=== PATIENT | female | born 1980 | race Caucasian/White ===

== ENCOUNTER 2020-10-28 10:07 | Outpatient (CLI) | payer SELFPAY ==
[~2020-10-28] VITALS: Ht 149.9 cm; Wt 68.2 kg
[2020-10-28 11:50] LABS: AMPHETAMINE SCREEN, URINE Positive (Negative); BARBITURATE SCREEN, URINE Negative (Negative); BENZODIAZEPINE SCREEN, URINE Negative (Negative); CANNABINOID SCREEN, URINE Positive (Negative); COCAINE SCREEN, URINE Negative (Negative); METHADONE SCREEN, URINE Negative (Negative); OPIATE SCREEN, URINE Negative (Negative)
[2020-10-28 11:52] VITALS: BP 122/72
== END 2020-10-28 13:52 | disposition home or self-care (01) ==
LOC: LDOP 10:07
PROVIDERS: ATTEND Obstetrics & Gynecology
DX: O09.33 Supervision of pregnancy with insufficient antenatal care, third trimester (principal); Z3A.30 30 weeks gestation of pregnancy
CPT/HCPCS: 36415; 59025; 76805; 80307; 86592; 86762; 86803; 86850; 86900; 87340; 87806; G0475

== ENCOUNTER 2020-10-30 13:48 | Outpatient (CLI) | payer MEDICAID ==
[~2020-10-30] VITALS: Ht 149.9 cm; Wt 71.3 kg
[2020-10-30 14:07] VITALS: BP 121/75
[2020-10-30 14:19] LABS: AMPHETAMINE SCREEN, URINE Negative (Negative); BARBITURATE SCREEN, URINE Negative (Negative); BENZODIAZEPINE SCREEN, URINE Negative (Negative); CANNABINOID SCREEN, URINE Positive (Negative); COCAINE SCREEN, URINE Negative (Negative); METHADONE SCREEN, URINE Negative (Negative); OPIATE SCREEN, URINE Negative (Negative)
[2020-10-30] MEDS ORDERED: ACETAMINOPHEN 500 MG TABLET PO ONE (15:00)
[2020-10-30] MEDS ORDERED: PREN1TAB10 PO (15:42)
[2020-10-30] MEDS ORDERED: ACET-1600 PO (15:44)
[2020-10-30] MEDS ORDERED: ALBU8.5H8 INH (15:46)
[2020-10-30] MEDS ORDERED: ALBUTEROL HFA 90 MCG/SPRAY INH PRN (16:00)
== END 2020-10-30 17:29 | disposition home or self-care (01) ==
LOC: LDOP 13:48
PROVIDERS: ATTEND Obstetrics & Gynecology
DX: O09.93 Supervision of high risk pregnancy, unspecified, third trimester (principal); O26.893 Other specified pregnancy related conditions, third trimester; M54.9 Dorsalgia, unspecified; Z3A.31 31 weeks gestation of pregnancy
CPT/HCPCS: 80307; 99211; G0463

== ENCOUNTER 2020-11-16 22:10 | Emergency (ER) | payer MEDICAID ==
[~2020-11-16 22:10] MED LIST: ACET-1600 PO; ALBU8.5H8 INH; PREN1TAB10 PO
--- NOTE | 2020-11-16 22:16 | NUR ---
34 WEEKS . PT TAKEN TO L&D. C/O PAIN/CRAMPS.
== END 2020-11-16 22:19 ==
LOC: ED 22:15
DX: R42 Dizziness and giddiness (principal); Z53.21 Procedure and treatment not carried out due to patient leaving prior to being seen by health care provider

== ENCOUNTER 2020-11-16 22:25 | Outpatient (CLI) | payer MEDICAID ==
[~2020-11-16] VITALS: Ht 149.9 cm; Wt 74.0 kg
[2020-11-16 23:00] VITALS: BP 109/62
[2020-11-16] MEDS ORDERED: BISACODYL 10 MG SUPP ONE (23:06)
[2020-11-16] MEDS ORDERED: BISACODYL 10 MG SUPP PR PRN (23:30)
== END 2020-11-16 23:36 | disposition home or self-care (01) ==
LOC: LDOP 22:25
PROVIDERS: ATTEND Obstetrics & Gynecology
DX: O09.93 Supervision of high risk pregnancy, unspecified, third trimester (principal); O26.893 Other specified pregnancy related conditions, third trimester; R14.0 Abdominal distension (gaseous); Z3A.34 34 weeks gestation of pregnancy
CPT/HCPCS: 59025

== ENCOUNTER 2020-11-21 14:50 | Outpatient (CLI) | payer MEDICAID ==
[2020-11-21 16:28] LABS: MICROSCOPIC INDICATED
[2020-11-21 16:46] LABS: AMPHETAMINE SCREEN, URINE Negative (Negative); BARBITURATE SCREEN, URINE Negative (Negative); BENZODIAZEPINE SCREEN, URINE Negative (Negative); CANNABINOID SCREEN, URINE Negative (Negative); COCAINE SCREEN, URINE Negative (Negative); METHADONE SCREEN, URINE Negative (Negative); OPIATE SCREEN, URINE Negative (Negative)
== END 2020-11-21 17:25 | disposition home or self-care (01) ==
LOC: LDOP 14:50
PROVIDERS: ATTEND Obstetrics & Gynecology
DX: O46.8X3 Other antepartum hemorrhage, third trimester (principal); Z3A.33 33 weeks gestation of pregnancy
CPT/HCPCS: 59025; 80307; 81001; 87086

== ENCOUNTER 2020-11-25 20:02 | Outpatient (CLI) | payer MEDICAID ==
[~2020-11-25] VITALS: Ht 149.9 cm; Wt 75.0 kg
[2020-11-25 20:33] LABS: MICROSCOPIC INDICATED
[2020-11-25 20:37] VITALS: BP 119/73
[2020-11-25 20:44] LABS: AMPHETAMINE SCREEN, URINE Negative (Negative); BARBITURATE SCREEN, URINE Negative (Negative); BENZODIAZEPINE SCREEN, URINE Negative (Negative); CANNABINOID SCREEN, URINE Negative (Negative); COCAINE SCREEN, URINE Negative (Negative); METHADONE SCREEN, URINE Negative (Negative); OPIATE SCREEN, URINE Negative (Negative)
== END 2020-11-25 21:20 | disposition home or self-care (01) ==
LOC: LDOP 20:02
PROVIDERS: ATTEND Obstetrics & Gynecology
DX: O09.93 Supervision of high risk pregnancy, unspecified, third trimester (principal); O62.9 Abnormality of forces of labor, unspecified; Z3A.34 34 weeks gestation of pregnancy
CPT/HCPCS: 59025; 80307; 81001; 87086

== ENCOUNTER 2020-12-21 16:25 | Inpatient (IN) | payer MEDICAID ==
[~2020-12-21] VITALS: Ht 149.9 cm; Wt 77.1 kg
[2020-12-21] MEDS ORDERED: PLEASE ENTER HEIGHT AND WEIGHT MC SCH (18:30)
[2020-12-21 18:33] VITALS: BP 122/74
[2020-12-21 18:53] LABS: MICROSCOPIC INDICATED
[2020-12-21 18:57] LABS: BASOPHILS % (AUTO) 1 % (0-1); EOSINOPHILS % (AUTO) 2 % (1-7); LYMPHOCYTES % (AUTO) 16 % (22-44); MEAN CORPUSCULAR HEMOGLOBIN 30.5 pg (27.0-34.8); MEAN CORPUSCULAR HGB CONC 33.9 g/dL (32.4-35.8); MEAN PLATELET VOLUME 9.4 fL (7.4-10.4); MONOCYTES % (AUTO) 8 % (2-9); NEUTROPHILS % (AUTO) 73 % (42-75); PLATELET COUNT 204 x10^3/uL (130-400); RED BLOOD COUNT 3.68 x10^6/uL (3.82-5.3); RED CELL DISTRIBUTION WIDTH 16.9 % (9.6-15.2)
[2020-12-21] MEDS: LACTATED RINGERS 1,000 ML IV SCH (19:00)
[2020-12-21 19:25] LABS: ALANINE AMINOTRANSFERASE 17 U/L (12-78); ALBUMIN 2.5 g/dL (3.4-5.0); ANION GAP 8 mmol/L (5-15); CALCIUM 8.7 mg/dL (8.5-10.1); CHLORIDE 110 mmol/L (98-107)
[2020-12-21 19:27] LABS: ALKALINE PHOSPHATASE 125 U/L (45-117); BILIRUBIN,TOTAL 0.2 mg/dL (0.2-1.0); TOTAL PROTEIN 6.8 g/dL (6.4-8.2)
[2020-12-21 19:47] LABS: AMPHETAMINE SCREEN, URINE Negative (Negative); BARBITURATE SCREEN, URINE Negative (Negative); BENZODIAZEPINE SCREEN, URINE Negative (Negative); CANNABINOID SCREEN, URINE Negative (Negative); COCAINE SCREEN, URINE Negative (Negative); METHADONE SCREEN, URINE Negative (Negative); OPIATE SCREEN, URINE Negative (Negative)
[2020-12-21 19:56] LABS: O2 FLOW ROOM AIR L/min
[2020-12-21] MEDS ORDERED: METOCLOPRAMIDE 5 MG/ML, 2ML IV ONE (20:30)
[2020-12-21] MEDS ORDERED: SODIUM CITRATE/CITRIC ACID 30 ML UDC PO ONE (20:30)
[2020-12-21] MEDS ORDERED: LIDOCAINE 1%, 20ML ONE (22:06)
[2020-12-21] MEDS ORDERED: NEWBORN KIT ONE (22:06)
[2020-12-21] MEDS ORDERED: MISOPROSTOL 200 MCG TABLET ONE (22:06)
[2020-12-21] MEDS ORDERED: OXYTOCIN 30U/ 0.9% NaCL 500ML 500 ML ONE (22:07)
[2020-12-22] MEDS: LACTATED RINGERS 1,000 ML IV SCH ×7 (05:30→19:30)
[2020-12-22] MEDS ORDERED: METOCLOPRAMIDE 5 MG/ML, 2ML ONE (05:49)
[2020-12-22] MEDS ORDERED: SODIUM CITRATE/CITRIC ACID 15 ML UDC ONE (05:49)
[2020-12-22] MEDS ORDERED: LIDOCAINE/PF 1.5% EPI 1:200K, 10 ML ONE (07:28)
[2020-12-22] MEDS ORDERED: FENTANYL PF 100 MCG/2ML ONE (07:53)
[2020-12-22] MEDS ORDERED: LIDOCAINE 1%, 20ML ONE (07:55)
[2020-12-22] MEDS ORDERED: LIDOCAINE-MPF 2%, 2ML ONE ×3 (08:20)
[2020-12-22] MEDS ORDERED: LIDOCAINE-MPF 2% ,5ML ONE (08:20)
[2020-12-22] MEDS ORDERED: ETOMIDATE 20 MG/10 ML ONE (08:20)
[2020-12-22] MEDS ORDERED: GLYCOPYRROLATE 0.2MG/1ML, 5ML ONE (08:20)
[2020-12-22] MEDS ORDERED: CEFAZOLIN 1,000 MG ONE ×2 (08:21)
[2020-12-22] MEDS ORDERED: OXYTOCIN 10 UNITS/ML, 1ML ONE ×2 (08:21)
[2020-12-22] MEDS ORDERED: ONDANSETRON 2MG/ML, 2ML ONE (08:21)
[2020-12-22] MEDS ORDERED: PHENYLEPHRINE 10 MG/ML ONE (08:21)
[2020-12-22] MEDS ORDERED: MISOPROSTOL 200 MCG TABLET ONE (08:44)
[2020-12-22] MEDS ORDERED: OXYcodone/APAP 5/325MG TABLET PO PRN ×2 (09:30)
[2020-12-22] MEDS ORDERED: SIMETHICONE 80 MG CHEW TAB PO PRN (09:30)
[2020-12-22] MEDS ORDERED: ONDANSETRON 2MG/ML, 2ML IV PRN (09:30)
[2020-12-22] MEDS ORDERED: ACETAMINOPHEN 325 MG TABLET PO PRN (09:30)
[2020-12-22] MEDS ORDERED: DIPH,PERTUSS(ACELL),TET VAC/PF NC IM-VACC PRN (09:30)
[2020-12-22] MEDS ORDERED: MISOPROSTOL 200 MCG TABLET PR PRN (09:30)
[2020-12-22] MEDS: OXYTOCIN 30U/ 0.9% NaCL 500ML 500 ML IV SCH ×2 (09:33→19:30)
[2020-12-22 09:51] VITALS: BP 115/73
[2020-12-22] MEDS: NICOTINE 7 MG/24 HR PATCH.TD24 TD SCH (10:29)
[2020-12-22] MEDS: KETOROLAC 30 MG/1 ML IV SCH ×3 (10:31→22:18)
[2020-12-22] MEDS: SERTRALINE 50MG TABLET PO SCH (10:34)
[2020-12-22 10:50] VITALS: BP 126/67
[2020-12-22 15:52] VITALS: BP 137/83
[2020-12-22 18:34] VITALS: BP 130/70
[2020-12-22 23:46] VITALS: BP 130/78
[2020-12-23] MEDS: LACTATED RINGERS 1,000 ML IV SCH ×8 (01:23→16:09)
[2020-12-23] MEDS: KETOROLAC 30 MG/1 ML IV SCH ×4 (03:30→22:02)
[2020-12-23 03:32] VITALS: BP 122/80
[2020-12-23] MEDS: OXYTOCIN 30U/ 0.9% NaCL 500ML 500 ML IV SCH ×2 (05:00→15:28)
[2020-12-23 06:08] VITALS: BP 128/78
[2020-12-23 06:09] LABS: BASOPHILS % (AUTO) 0 % (0-1); EOSINOPHILS % (AUTO) 2 % (1-7); LYMPHOCYTES % (AUTO) 13 % (22-44); MEAN CORPUSCULAR HEMOGLOBIN 30.6 pg (27.0-34.8); MEAN CORPUSCULAR HGB CONC 33.7 g/dL (32.4-35.8); MEAN PLATELET VOLUME 9.9 fL (7.4-10.4); MONOCYTES % (AUTO) 7 % (2-9); NEUTROPHILS % (AUTO) 77 % (42-75); PLATELET COUNT 163 x10^3/uL (130-400); RED BLOOD COUNT 2.93 x10^6/uL (3.82-5.3); RED CELL DISTRIBUTION WIDTH 17.2 % (9.6-15.2)
[2020-12-23] MEDS: SERTRALINE 50MG TABLET PO SCH ×2 (08:46→08:57)
[2020-12-23] MEDS: PRENATAL VIT/IRON/FA 1 EACH TABLET PO SCH (08:46)
[2020-12-23] MEDS: NICOTINE 7 MG/24 HR PATCH.TD24 TD SCH (10:19)
[2020-12-23 12:15] VITALS: BP 110/66
[2020-12-23 15:41] VITALS: BP 129/85
[2020-12-23 18:12] VITALS: BP 126/79
[2020-12-23 19:30] VITALS: BP 134/84
[2020-12-23] MEDS: DOCUSATE 100 MG CAPSULE PO PRN (22:02)
[2020-12-24 00:40] VITALS: BP 113/74
[2020-12-24] MEDS: LACTATED RINGERS 1,000 ML IV SCH ×4 (01:30→08:48)
[2020-12-24] MEDS: OXYTOCIN 30U/ 0.9% NaCL 500ML 500 ML IV SCH (01:30)
[2020-12-24] MEDS: KETOROLAC 30 MG/1 ML IV SCH (03:30)
[2020-12-24 03:40] VITALS: BP 110/66
[2020-12-24 08:35] VITALS: BP 137/88
[2020-12-24] MEDS: PRENATAL VIT/IRON/FA 1 EACH TABLET PO SCH (08:45)
[2020-12-24] MEDS: DOCUSATE 100 MG CAPSULE PO PRN (08:45)
[2020-12-24] MEDS: SERTRALINE 50MG TABLET PO SCH (08:46)
== END 2020-12-24 16:00 | disposition home or self-care (01) | DRG 783 ==
LOC: LDOP 16:25 → LDIP 17:43 → EDSTATUS 17:43 → 5SO 12-22 09:48 → 2NW 12-23 18:07
PROVIDERS: ADMIT Obstetrics & Gynecology; ATTEND Obstetrics & Gynecology
PROC: 10D00Z1 Extraction of Products of Conception, Low, Open Approach (ICD-10-PCS; 2020-12-22)
PROC: 0UB70ZZ Excision of Bilateral Fallopian Tubes, Open Approach (ICD-10-PCS; principal; 2020-12-22 07:00)
DX: O69.81X0 Labor and delivery complicated by cord around neck, without compression, not applicable or unspecified (principal); O90.3 Peripartum cardiomyopathy; J45.909 Unspecified asthma, uncomplicated; Z20.822 Contact with and (suspected) exposure to COVID-19; O36.5930 Maternal care for other known or suspected poor fetal growth, third trimester, not applicable or unspecified; F32.9 Major depressive disorder, single episode, unspecified; F41.9 Anxiety disorder, unspecified; F15.10 Other stimulant abuse, uncomplicated; O99.52 Diseases of the respiratory system complicating childbirth; Z37.0 Single live birth; Z3A.39 39 weeks gestation of pregnancy; Z91.19 Patient's noncompliance with other medical treatment and regimen; Z87.891 Personal history of nicotine dependence
CPT/HCPCS: 36415; 36600; J3490; 80053; 80307; 81001; 82803; 85025; 86592; 86850; 86900; 87635; 88302; 88307; 93306; 93356; G0378; J0690; J1885; J2405; J3010; J2370; J2590; J2765; J7120

== ENCOUNTER 2020-12-25 13:21 | Emergency (ER) | payer MEDICAID ==
[~2020-12-25] VITALS: Ht 149.9 cm; Wt 76.2 kg
[2020-12-25 14:19] LABS: BASOPHILS % (AUTO) 1 % (0-1); EOSINOPHILS % (AUTO) 4 % (1-7); LYMPHOCYTES % (AUTO) 17 % (22-44); MEAN CORPUSCULAR HEMOGLOBIN 29.8 pg (27.0-34.8); MEAN CORPUSCULAR HGB CONC 32.6 g/dL (32.4-35.8); MEAN PLATELET VOLUME 9.9 fL (7.4-10.4); MONOCYTES % (AUTO) 6 % (2-9); NEUTROPHILS % (AUTO) 71 % (42-75); PLATELET COUNT 195 x10^3/uL (130-400); RED BLOOD COUNT 3.21 x10^6/uL (3.82-5.3); RED CELL DISTRIBUTION WIDTH 17.3 % (9.6-15.2)
[2020-12-25 14:20] LABS: ALANINE AMINOTRANSFERASE 37 U/L (12-78); ALBUMIN 2.3 g/dL (3.4-5.0); ANION GAP 6 mmol/L (5-15); CALCIUM 8.2 mg/dL (8.5-10.1); CHLORIDE 110 mmol/L (98-107); CREATININE 0.48 mg/dL (0.55-1.02)
[2020-12-25 14:25] LABS: ALKALINE PHOSPHATASE 114 U/L (45-117); BILIRUBIN,TOTAL 0.2 mg/dL (0.2-1.0); TOTAL PROTEIN 6.2 g/dL (6.4-8.2); TROPONIN I < 0.015 ng/mL (0.000-0.045)
--- NOTE | 2020-12-25 15:11 | NUR ---
FIRST CONTACT. RN ASIA IS DISCHARGING THE PT. FOR THE PRIMARY CARE RN MADHU. PT. WAS GIVEN DISCHARGE INSTRUCTIONS WITH UNDERSTANDING VERBALIZED, ALONG WITH WILLINGNESS TO COMPLY. PT. WAS AMBULATORY TO THE DISCHARGE DESK, VSS.
[2020-12-25 15:13] VITALS: BP 132/85
== END 2020-12-25 15:15 | disposition home or self-care (01) ==
LOC: ED 14:45
DX: R06.00 Dyspnea, unspecified (principal); R06.02 Shortness of breath; R00.0 Tachycardia, unspecified; F17.200 Nicotine dependence, unspecified, uncomplicated
CPT/HCPCS: 36415; 71045; 80053; 83880; 84484; 85025; 93005; 99285